=== PATIENT | female | born 1975 | race Caucasian/White ===

== ENCOUNTER 2016-04-06 17:21 | Inpatient (IN) | payer OTHER ==
[~2016-04-06] VITALS: Ht 162.6 cm; Wt 54.3 kg
[2016-04-06 17:23] VITALS: BP 84/60; PULSE 59; RESP 18; O2SAT 99
[2016-04-06] MEDS ORDERED: HYDROmorphone 2 mg/mL Inj ONE (17:59)
[2016-04-06] MEDS ORDERED: Rocuronium 10 mg/mL 5 mL Inj ONE (17:59)
[2016-04-06] MEDS ORDERED: Dexamethasone 4 mg/mL Inj ONE (17:59)
[2016-04-06] MEDS ORDERED: Propofol 10,000 mCg/mL 20 mL Inj ONE (17:59)
[2016-04-06] MEDS ORDERED: Neostigmine 1 mg/mL 5 mL Inj ONE (17:59)
[2016-04-06] MEDS ORDERED: fentaNYL-PF 50 mCg/mL 2 mL Inj ONE (17:59)
[2016-04-06] MEDS ORDERED: Ondansetron 2 mg/mL 2 mL Inj ONE (17:59)
[2016-04-06] MEDS ORDERED: Glycopyrrolate 0.2 mg/mL 5 mL Inj ONE (17:59)
[2016-04-06 18:29] VITALS: BP 109/45; PULSE 77; RESP 20; O2SAT 99
--- NOTE | 2016-04-06 18:30 | ED.REPORT ---
HPI-Extremity Problem Upper Date of Service Apr 06, 2016 ED Provider: Dr. Holt Pt is a 40 year old female presenting to the ED complaining of right arm pain onset while snowboarding today. She denies hitting her head, abd pain, chest pain, or any other symptoms at this time. Nursing Notes Stated Complaint: RIGHT ARM PAIN Chief Complaint: Extremity Trauma Nursing Notes Reviewed: Yes Allergies: Coded Allergies: No Known Allergies (Unverified , 04/06/16) No Active Prescriptions or Reported Meds General Time Seen by MD: 18:30 Chief Complaint Arm injury right Hx Obtained From: Patient Arrived By: Walk-in Onset Occurred: Just prior to arrival Symptom Duration: Since onset Caused by: Accidental Context: Occurred at: Sports injury Location: : Arm right Quality: Painful Severity: Current: Moderate Severity: Maximum: Severe Associated with: Denies: Abdominal pain, Chest pain, Neck pain Recent Healthcare: No recent doctor visit, No recent hospitalization Similar Sx Previous: No Past Medical History Past Medical History denies Past Surgical History denies Smoking History Unknown if Ever Smoker Ambulatory Status Independent Review of Systems Musculoskeletal: Reports: Extremity pain (Right arm), Joint pain (Right shoulder) Neurologic: Denies: Headache Complete sys rev & neg: except as marked. Cardiovascular: Denies: Chest pain GI: Denies: Abdominal pain Physical Exam Initial Vital Signs Vital Signs (First) Date Time Temp Pulse Resp B/P Pulse Ox O2 Delivery O2 Flow Rate FiO2 04/06/16 17:23 36.3 59 18 84/60 99 Room Air Initial VS: Reviewed Head / Eyes: Atraumatic, Normocephalic, PERRL ENT: Mucous membranes moist, Conjunctiva normal, No scleral icterus Neck: Supple, Non-tender, Full range of motion Respiratory: Breath sounds normal, Clear to auscultation, No respiratory distress Lower Extremities: Vascular intact, Neuro intact, No swelling, No tenderness Skin: Warm, Dry, No cyanosis Neurologic: Alert, Oriented, Nonfocal Psychiatric: Mood/affect normal, Behavior normal, Normal thought content General/Constitutional: Awake, Alert Distress / Hydration: Positive: Distress moderate (Due to pain) Upper Extremity / MS: No erythema, No compartment syndrome Right Upper Arm: Positive: Deformity humerus mid, Swelling present... (Mild), Tenderness present... (Severe) Palpable crepitance right upper arm. No palpable radial or ulnar pulse. Warm hand with instant capillary refill. Ulnar neuropathy and wrist drop. Cannot adduct at fingers. Interpretation & Diagnostics Lab Results Interpretation Result Diagram: 04/06/16 1830 04/06/16 1830 Test 04/06/16 18:30 04/06/16 20:14 White Blood Count 17.8th/mm3 (3.8-10.1) Red Blood Count 4.22mil/mm3 (3.90-5.20) Hemoglobin 12.7g/dL (12.0-15.6) Hematocrit 38.4% (35.0-46.0) Mean Corpuscular Volume 91.0fL (81-100) Mean Corpuscular Hemoglobin 30.1pg (27.0-35.0) Mean Corpuscular Hemoglobin Concent 33.1% (32.0-37.0) Red Cell Distribution Width 13.8% (12.3-15.4) Platelet Count 252bil/L (150-400) Neutrophils (%) (Auto) 92.5% (40-74) Lymphocytes (%) (Auto) 4.4% (14-46) Monocytes (%) (Auto) 2.8% (4-12) Eosinophils (%) (Auto) 0% (0-5) Basophils (%) (Auto) 0.1% (0-3) Sodium Level 137mEq/L (134-144) Potassium Level 4.4mEq/L (3.5-5.2) Chloride Level 103mEq/L (97-108) Carbon Dioxide Level 21mmol/L (18-29) Blood Urea Nitrogen 14mg/dL (6-20) Creatinine 0.68mg/dL (0.57-1.00) Estimat Glomerular Filtration Rate 139mL/min (>59) Glucose Level 123mg/dL (60-99) Calcium Level 8.4mg/dL (8.5-10.1) Total Bilirubin 0.6mg/dL (0.0-1.2) Aspartate Amino Transf (AST/SGOT) 23U/L (0-50) Alanine Aminotransferase (ALT/SGPT) 15U/L (0-32) Alkaline Phosphatase 59U/L (25-150) Total Protein 6.8g/dL (6.4-8.4) Albumin 3.9g/dL (3.4-5.0) HCG Beta Subunit < 0.500mIU/mL Hold Urine Received (Received) X-Ray Interpretation Xray Interpretation: XRAY RIGHT HUMERUS: IMPRESSION: Right humerus fracture as above Dictated by: Ravi Jimenez M.D. on 04/06/2016 at 18:53 X-Ray Ordered: Humerus right Interpretation / Wet Read by: Interpret - Radiologist Procedures Splint Application - Fx Mgt Splint Application- Fx Mgt: Time out performed. Time: 18:50 Procedure Performed by: ED physician Precise Anatomic Location: Right upper arm Type of Immobilization: Ortho-glass Definitive Fracture Care: Performed by me Post-Procedure / Complications: Condition improved, Tolerated procedure well , Patient stable Re-Eval/Medical Decision Med Decision/Clinical Course Patient presented with a comminuted right humerus fracture. She has radial and possibly ulnar nerve entrapment/injury. She is unable to extend at the wrist or extend the thumb. She has weakness with abduction and abduction at the second through fifth digits. She is able to fire her thenar eminence. I cannot feel a radial pulse on either arm but I can feel that she has ulnar pulse. Hand held vascular probe Doppler confirmed the presence of radial blood flow bilaterally. She was placed in a splint and sling and she continued to have severe pain and radial nerve deficits as well as ulnar nerve deficit visit. Dr. Polanco consulted. Plan for operative intervention tonight. Re-Evaluation/Progress #1: Time of Eval: 18:38 Patient Status: Condition improved Re-Evaluation/Progress Note: The pt has sensation in her thumb. Re-Evaluation/Progress #2: Time of Eval: 18:42 Patient Status: Condition improved Re-Evaluation/Progress Note: Discussed plan for admission and surgery in the morning. Re-Evaluation/Progress #3: Time of Eval: 18:47 Patient Status: Condition improved Re-Evaluation/Progress Note: Re-splinted the arm and checked sensation, tendon function, and pulses. Radial and ulnar nerves affected. Consultation #1: Referral / Consult Name: Miguel Ángel Polanco MD Consulted With: Orthopedic Call Returned at: 18:40 Note: Admit the pt and she will have surgery in the morning. Consultation #2: Referral / Consult Name: Tej Ramirez MD Consulted With: Hospitalist Call Returned at: 19:00 Spinning Frame Fixer: Will see patient, Agrees with plan, Accepts admit Counseled Regarding: Diagnosis, Lab results, Need for follow-up, When/why to return to ED Discharge & Departure Shift Change Sign-Out Response to Therapy: Improved Impression: Primary Impression: Comminuted right humeral fracture Disposition: ADMITTED TO HOSPITAL Discharge Condition All VS Reviewed: Yes Condition: Improved Referrals: [facility] [place] Attestation Portions of this note were transcribed by Ángela Newsome. I, Dr. Holt personally performed the history, physical exam and medical decision-making; I reviewed and confirmed the accuracy of the information in the transcribed note. Signed by : Love Dc, 04/06/2016 and 2031. copies to: [facility] Jose Holt DO Apr 06, 2016 18:30 ÁNGELA NEWSOME Apr 06, 2016 18:36
[2016-04-06] MEDS: HYDROmorphone 0.5 mg/0.5 mL iSecure Syringe IVPUSH PRN ×7 (18:44→21:19)
[2016-04-06 18:53] LABS: BASOPHILS % (AUTO) 0.1 % (0-3); EOSINOPHILS % (AUTO) 0 % (0-5); MONOCYTES % (AUTO) 2.8 % (4-12); Mean Corpuscular Hemoglobin 30.1 pg (27.0-35.0); NEUTROPHILS % (AUTO) 92.5 % (40-74); Platelet Count 252 bil/L (150-400)
--- NOTE | 2016-04-06 18:55 | DRSVH ---
PROCEDURE: X-RAY RIGHT HUMERUS, MINIMUM TWO VIEWS ([id number]) INDICATIONS: RIGHT HUMURUS INJURY TECHNIQUE: 2 views of the humerus were acquired. COMPARISON: None. FINDINGS: Bones: Comminuted fracture of the right humerus, moderate medial displacement of the butterfly fragme nt Soft tissues: No suspicious soft tissue calcifications. IMPRESSION: Right humerus fracture as above Dictated by: Ravi Jimenez M.D. on 04/06/2016 at 18:53 Approved by: Ravi Jimenez M.D. on 04/06/2016 at 18:53
[2016-04-06] MEDS ORDERED: Lactated Ringer's 1,000 ML IV ONE (19:53)
[2016-04-06 21:12] VITALS: BP 98/63; PULSE 78; RESP 16; O2SAT 93
[2016-04-06] MEDS ORDERED: CeFAZolin 2 Gm/50 mL D5W Duplex Bag IV ONE (21:28)
--- NOTE | 2016-04-06 21:52 | PCM.CONORT ---
Subjective Date of Surgery: Apr 06, 2016 Surgeon Admitting Provider:Miguel Ángel Polanco MD Attending Provider:Miguel Ángel Polanco MD Primary Care Physician:Lady Stovall Other Provider:Margo Schwartz Anesthesia Reason for Consultation: Right arm pain Allergy Allergies: Coded Allergies: No Known Allergies (Unverified , 04/06/16) History Cardiovascular History: Denies:: Congestive Heart Failure Hypertension Respiratory History: Denies:: Tuberculosis Other History/Comment Beatriz Quezada is a 40-year-old right hand dominant patient who presents to the ER for evaluation of their right humerus with ongoing symptoms. The patient states that their pain is a sharp in nature and mild/moderate in severity localized to the lateral aspect of the arm without radiation. This has been progressing over the past several hours after falling on outstretched arm while snowboarding at [facility] earlier today. Moreover, the pain is exacerbated by activities, especially with movement. Rest seems to improve the symptoms. There is decreasing sensation to her hand mostly her thumb as well as inability to move her thumb and weakness to the affected distal upper extremity. The patient denies any fever, chills, nausea, vomiting, chest pain, shortness of breath, or calf tenderness. Previous treatment has included: Sling and splint placed and ER. 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7g/dL (12.0-15.6) Hematocrit 38.4% (35.0-46.0) Mean Corpuscular Volume 91.0fL (81-100) Mean Corpuscular Hemoglobin 30.1pg (27.0-35.0) Mean Corpuscular Hemoglobin Concent 33.1% (32.0-37.0) Red Cell Distribution Width 13.8% (12.3-15.4) Platelet Count 252bil/L (150-400) Neutrophils (%) (Auto) 92.5% (40-74) Lymphocytes (%) (Auto) 4.4% (14-46) Monocytes (%) (Auto) 2.8% (4-12) Eosinophils (%) (Auto) 0% (0-5) Basophils (%) (Auto) 0.1% (0-3) Sodium Level 137mEq/L (134-144) Potassium Level 4.4mEq/L (3.5-5.2) Chloride Level 103mEq/L (97-108) Carbon Dioxide Level 21mmol/L (18-29) Blood Urea Nitrogen 14mg/dL (6-20) Creatinine 0.68mg/dL (0.57-1.00) Estimat Glomerular Filtration Rate 139mL/min (>59) Glucose Level 123mg/dL (60-99) Calcium Level 8.4mg/dL (8.5-10.1) Total Bilirubin 0.6mg/dL (0.0-1.2) Aspartate Amino Transf (AST/SGOT) 23U/L (0-50) Alanine Aminotransferase (ALT/SGPT) 15U/L (0-32) Alkaline Phosphatase 59U/L (25-150) Total Protein 6.8g/dL (6.4-8.4) Albumin 3.9g/dL (3.4-5.0) HCG Beta Subunit < 0.500mIU/mL Result Diagram: 04/06/16182904/06/161829 Review of Systems: Constitutional: Negative, except as otherwise mentioned in the history above. Ophthalmologic: Negative, except as otherwise mentioned in the history above. Cardiovascular: Negative, except as otherwise mentioned in the history above. Respiratory: Negative, except as otherwise mentioned in the history above. Gastrointestinal: Negative, except as otherwise mentioned in the history above. Genitourinary: Negative, except as otherwise mentioned in the history above. Musculoskeletal: Negative, except as otherwise mentioned in the history above. Neurological: Negative, except as otherwise mentioned in the history above. Psychiatric: Negative, except as otherwise mentioned in the history above. Hematologic/Lymphatic: Negative, except as otherwise mentioned in the history above. Allergic/Immunologic: Negative, except as otherwise mentioned in the history above. H&P Surgical Exam Exam Musculoskeletal: CONST: WD,WN, NAD, A+OX3 OCULAR: EOMI, no conjunctivitis/icterus ENT: no deformities, scars or lesions CARDIAC: Pulse is regular. No cyanosis,clubbing,edema RESP: regular,unlabored MSK: normal light touch median, ulnar, lateral antebrachial, axillary nerve distribution, absent radial nerve sensation along thumb and dorsum of the hand and index, unable to make a okay sign and extend the thumb and wrist. Able to wiggle fingers. C5-T1 intact, 2+ u pulse, nonpalpable radial pulse bilaterally but positive Doppler bilaterally Right humerus - scars.++ swelling, - atrophy or asymmetry. no global ligamentous laxity, TTP humerus ROM R/ L Resisted Strength/Pain deferred- + painful arc, - crepitus Signs elbow flexion test:na Tinel's sign: na Mill's test: na Cozen's test: na Varus Stress test: na Valgus Stress test: na Moving Valgus stress test: na Additional Information X-rays the right humerus demonstrate displaced spiral segmental proximal middle third right humerus fracture H&P Preop Plan Impression Right displaced segmental spiral humeral shaft fracture Problems: Risks & Benefits * We have reviewed the risks and benefits as well as the alternatives to surgery. All questions were answered to the patient's satisfaction and a counseling note to that effect. The patient has provided informed consent. * I have counseled the patient regarding the deleterious effects that smoking during the perioperative period can have upon wound healing, infection rates, and the overall rate of complications. Plan Nonweightbearing right upper extremity Oral pain meds as needed Plan for open reduction internal fixation of right humerus with nerve exploration Nothing by mouth since 10 AM this morning Coaptation splint for comfort Sling I reviewed my findings with the patient. The patient remains symptomatic following the initial injury. In light of the ongoing symptoms, our plan is to proceed with surgical intervention. I have explained to the patient the nature of the surgery as well as the perioperative recovery including the risks, benefits and alternatives. A clear explanation was given to the patient regarding the condition present, and the available conservative and surgical options. It was emphasized that the risks and benefits of surgery include but are not limited to infection, wound healing problems, damage to adjacent structures such as nerves, blood vessels and tendons, chcf disability and pain, arthritis, hypersensitivity, deep vein thrombosis, pulmonary embolism, broken hardware, failure of surgery, need for further procedures at time of surgery or later, loss of limb, heart attack, stroke, and . The patient was given an explanation and the patient voiced understanding of what to expect after the procedure or surgery, the limitations in activities of daily living, the likely duration for post operative recovery and the instructions that are to be followed. At the end the patient was invited to seek clarification or ask further questions but there were none. I have advised the patient first that there are no guarantees as to outcome and that their ultimate improvement is largely based on the extent of the pre-existing underlying pathology. The patients questions were answered and they stated understanding of the nature of the surgical procedure and gave written and verbal consent to proceed. The patient voiced understanding of the entire consultation. Please keep the affected extremity elevated when possible. You may use ice and/or heat as needed for comfort. All questions and concerns were addressed. Please feel free to call with any further questions, comments, and/or concerns. Miguel Ángel Polanco MD Apr 06, 2016 21:52
--- NOTE | 2016-04-06 22:08 | PCM.HPANE ---
Patient Data Surgeon Admitting Provider: Attending Provider: Primary Care Physician:Lady Stovall Other Provider: Reason for Visit Right Arm Pain Ht/WT & BMI Height (Feet): 5 Height (Inches): 4 Weight (Kilograms): 54.55 Body Mass Index Allergies Coded Allergies: No Known Allergies (Unverified , 04/06/16) Past Anesthesia History Anesthesia History: Denies:: Abnormal Airway, Anesthesia Reactions, Difficult Intubation, Fam Anesthesia Reaction, Fam Malignant Hypertherm, Malignant Hyperthermia Diabetes History Hx Diabetes?: No MRSA MRSA: No Medications Hypertension Medication: No Home Meds Incl Beta Graham: No History History of ENT Problems?: No HEENT History: Denies:: Abnormal Airway Cataracts Difficult Intubation Dysphagia Glaucoma Hearing Problem Sinus Problem TMJ Hx of Heart Problems?: No Cardiovascular History: Denies:: AICD Abdominal Aortic Aneurism Atrial Fibrillation Cardiac Surgery Chest Pain Congestive Heart Failure Coronary Artery Disease Edema Heart Murmur Hypertension Irregular Heartbeat Pacemaker Peripheral Vascular Rheumatic Fever Thrombophlebitis Valvular Heart Disease Hx of Respiratory Problem?: No Respiratory History: Denies:: Asthma COPD Chest Surgery Cough Dyspnea Emphysema Hemoptysis Oxygen Administration Pneumonia Pulmonary Embolism Tuberculosis Use of C-PAP Machine Use of Inhalers / NEBS Hx Neurologic Problems?: No Hx of GI Problems?: No Hx of Problems?: No HX of Peritoneal Dialysis: No Female Hx: Denies:: Currently Endometriosis Pelvic Inflammatory Problems with Breasts? Hx Musculoskeletal Problems?: Yes Musculoskeletal History: Positive for:: Musculoskeletal Trauma (Right humerus fracture) Hx of Psycho/Social Problems?: No Hx Surgeries?: Yes Other History: Denies:: Cancer Endocrine Disease Hospitalization Thyroid Disease History Blood Transfusions: Denies:: Accept Blood Products? Blood Transfuse Reaction Blood Transfusions Hx Alcohol Use: YesHx Substance Use: No Smoking Status: Unknown if Ever Smoker Have You Smoked inLast 12 mo: No Stop/Bang JOSE ANGEL Risk Assessment: Low Risk, <3 Yes Risk Assessment Category Category 1A: Patient has history of documented sleep apnea, and HAS NOT received any narcotic, sedative or anesthesia administration during this stay. Category 1B: Patient has history of documented sleep apnea, and HAS received any narcotic , sedative or anesthesia administration during this stay Category 2: Patient has SUSPECTED Obstructive Sleep Apnea, and HAS received any narcotic , sedative or anesthesia administration during this stay. Category 3: Patient has SUSPECTED Obstructive Sleep Apnea and HAS NOT received narcotic, sedative or anesthesia administration during this stay. Category 4: Outpatient in Procedural Areas with known sleep apnea or who screen positive for High Risk via the STOP/BANG questionnaire. Exam Exam Vital Signs Vital Signs Date Time Temp Pulse Resp B/P Pulse Ox O2 Delivery O2 Flow Rate FiO2 04/06/16 18:29 77 20 109/45 99 Room Air 04/06/16 17:23 36.3 59 18 84/60 99 Room Air General Appearance: Alert, Oriented X3, Cooperative, No Acute Distress HEENT/AIRWAY: MP 2 Lungs: Clear to Auscultation, Normal Air Movement Heart: Exam Unremarkable, Regular Rate/Rhythm, No Murmurs/Rubs/Gallops Meds/Labs/Diagnostics Labs Test 04/06/16 18:30 White Blood Count 17.8th/mm3 (3.8-10.1) Red Blood Count 4.22mil/mm3 (3.90-5.20) Hemoglobin 12.7g/dL (12.0-15.6) Hematocrit 38.4% (35.0-46.0) Mean Corpuscular Volume 91.0fL (81-100) Mean Corpuscular Hemoglobin 30.1pg (27.0-35.0) Mean Corpuscular Hemoglobin Concent 33.1% (32.0-37.0) Red Cell Distribution Width 13.8% (12.3-15.4) Platelet Count 252bil/L (150-400) Neutrophils (%) (Auto) 92.5% (40-74) Lymphocytes (%) (Auto) 4.4% (14-46) Monocytes (%) (Auto) 2.8% (4-12) Eosinophils (%) (Auto) 0% (0-5) Basophils (%) (Auto) 0.1% (0-3) Sodium Level 137mEq/L (134-144) Potassium Level 4.4mEq/L (3.5-5.2) Chloride Level 103mEq/L (97-108) Carbon Dioxide Level 21mmol/L (18-29) Blood Urea Nitrogen 14mg/dL (6-20) Creatinine 0.68mg/dL (0.57-1.00) Estimat Glomerular Filtration Rate 139mL/min (>59) Glucose Level 123mg/dL (60-99) Calcium Level 8.4mg/dL (8.5-10.1) Total Bilirubin 0.6mg/dL (0.0-1.2) Aspartate Amino Transf (AST/SGOT) 23U/L (0-50) Alanine Aminotransferase (ALT/SGPT) 15U/L (0-32) Alkaline Phosphatase 59U/L (25-150) Total Protein 6.8g/dL (6.4-8.4) Albumin 3.9g/dL (3.4-5.0) HCG Beta Subunit < 0.500mIU/mL Plan Impression Patient chart reviewed, patient interviewed and anesthestic plan with risks, benefits, and alternatives discussed, and informed consent obtained. ASA Physical Status: ASA1 Plus Emergency Anesthetic Plan: GA Bene/Risks/Altern/Consents: Yes HP Complete Prior to Induction: Yes [place] MD Apr 06, 2016 19:54
[2016-04-06] MEDS ORDERED: hydrOXYzine Inj 25 MG/1 mL SDV IM PRN (22:20)
[2016-04-06] MEDS ORDERED: EPHEDrine Sulfate 50 mg/mL Inj IM PRN (22:20)
[2016-04-06] MEDS ORDERED: Ondansetron 2 mg/mL 2 mL Inj IVPUSH PRN (22:20)
[2016-04-06] MEDS ORDERED: Atropine 0.4 mg/mL Inj IVPUSH PRN (22:20)
[2016-04-06] MEDS ORDERED: Phenylephrine 10,000 mCg/mL Inj IVPUSH PRN (22:20)
[2016-04-06] MEDS ORDERED: EPHEDrine Sulfate 50 mg/mL Inj IVPUSH PRN (22:20)
[2016-04-06] MEDS ORDERED: hydrALAZINE 20 mg/mL Inj IVPUSH PRN (22:20)
[2016-04-06] MEDS ORDERED: MetoCLOpramide 5 mg/mL 2 mL Inj IVPUSH PRN (22:20)
[2016-04-06] MEDS ORDERED: Lactated Ringer's 1,000 ML IV SCH (22:20)
[2016-04-06] MEDS ORDERED: Labetalol 5 mg/mL 4 mL Inj IV PRN (22:20)
[2016-04-06] MEDS ORDERED: Lactated Ringer's 500 ML IV PRN (22:20)
[2016-04-06] MEDS ORDERED: HYDROmorphone 1 mg/mL Inj IVPUSH PRN (22:20)
[2016-04-06] MEDS ORDERED: Bacitracin 50,000 unit Inj IRRIGATION ONE (23:20)
[2016-04-07] VITALS (11 sets, daily range): BP systolic 89–121; BP diastolic 48–72; PULSE 10–80; RESP 10–22; O2SAT 96–100
[2016-04-07] MEDS ORDERED: Bupivacaine-MPF 0.5% 30 mL Inj INFILTRATE ONE (00:04)
[2016-04-07] MEDS ORDERED: Polyethylene Glycol (PEG) 17 Gm Powder PO PRN (00:50)
[2016-04-07] MEDS ORDERED: Magnesium Hydroxide 10 mL Oral Concentration PO PRN (00:50)
[2016-04-07] MEDS ORDERED: Sodium Biphos-Phos 133 mL Enema RECTAL PRN (00:50)
[2016-04-07] MEDS ORDERED: Ketorolac 15 mg/mL Inj IVPUSH PRN (00:50)
--- NOTE | 2016-04-07 00:55 | PCM.ORTHOP ---
Orthopedic Operative Report Date of Service: Apr 06, 2016 Pre Operative Diagnosis Right comminuted humeral surgical neck and shaft fracture Post Operative Diagnosis Same Procedure Right humerus open reduction internal fixation Surgeon Surgeon: Miguel Ángel Polanco MD Assistants: Shania Gonzalez Indication for Procedure Right displaced comminuted humeral shaft and surgical neck fracture Findings Right comminuted displaced humeral shaft and surgical neck fracture Details of Procedure Implant: Synthes proximal humerus plate 235mm Indications: Beatriz Quezada is a 40-year-old right-hand dominant female who sustained a humerus shaft fracture after fall today. the patient reports severe recalcitrant pain and radial nerve palsy in the arm. The patient elected for operative treatment. A clear explanation was given to the patient regarding the condition present, and the available conservative and surgical options. It was emphasized that the risks and benefits of surgery include but are not limited to infection, wound healing problems, damage to adjacent structures such as nerves, blood vessels and tendons, usp disability and pain, arthritis, hypersensitivity, deep vein thrombosis, pulmonary embolism, broken hardware, failure of surgery, need for further procedures at time of surgery or later, cast related problems, loss of limb or life. The patient was given an explanation and the patient voiced understanding of what to expect after the procedure or surgery, the limitations in activities of daily living, the likely duration for post operative recovery and the instructions that are to be followed. At the end the patient was invited to seek clarification or ask further questions but there were none. The patient voiced understanding of the entire consultation. Description of Operation: Patient taken to operating room and transferred to operating table in supine position. Time out was performed with both anesthesia and orthopaedics faculty present to confirm details of case to be performed. After time out performed, patient placed under general anesthesia and endotracheal tube secured into place. Once endotracheal tube secured, the patient was then positioned supine with a hand table Patient position was again checked to ensure all bony prominences adequately padded. The right arm was prepped and draped in the usual sterile fashion. Preoperative antibiotics were administered. A standard anterolateral approach was made with care dissection with a deltopectoral approach proximally and between the biceps and brachialis at the mid shaft and between the brachialis and brachioradialis distally. The radial nerve was identified and protected throughout the procedure. Blunt dissection was used to carefully expose the fracture site medially and laterally on the mid-shaft and proximal humerus. Care was taken to not damage nearby neurovascular structures. The fracture appeared to have 2 large segmental butterfly fragment that was spiral in nature and not amenable to compression plating. The anterolateral aspect of humerus was cleared of soft tissue and radial nerve for placement of the plate. A Rongeur was used to clean the fracture site. The fracture was carefully reduced using reduction clamps and FiberWire and alignment verified in both AP and lateral views with the C-arm. The Synthes plate was placed over the anterolateral aspect of the humerus and secured proximally with locking screws proximally and cortical screws distally. Greater than Six cortices were obtained proximally and eight distally with cortical screws inserted in the standard fashion using the drill guide and depth gauge. Fluoroscopy confirmed anatomic reduction of the fracture in orthogonal views. The wound was thoroughly irrigated by bulb irrigation. Hemostasis was obtained with electrocautery. The aforementioned intervals were closed with 0 Vicryl. The subcutaneous space was closed with interrupted 2-0 Vicryl suture. The skin was closed with 3-0 Prolene suture. Hard copy radiographs confirmed adequate reduction and placement of hardware. The patient was extubated without difficulty and transferred to the PACU in stable condition. I was present for the entire procedure. 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 Without the qualified pest controller assistant being present, it would have extended the operative procedure and made the procedure technically more difficult to perform. The plan is to continue nonweightbearing for at least 6 weeks. He will be discharged on [place] and [place]. Please continue range of motion exercises to the elbow wrist and hand 3 times daily while in splint. Please keep dressing on at all times and do not get the dressing wet. If just become soaked, you may change the gauze but do not remove the under dressing. You will follow-up with me in 2 weeks with x-rays for dressing change and at 6 weeks with my PA. Grafts, Implants: Implants-See Implant Record Complications There were no periprocedural complications identified. Condition Stable Anesthetic Administered: GA Catheters: None Output, Estimated Blood Loss: 100 Blood Admin during surgery: No Surgical Cast or Splint: Long Arm Splint Surgical Specimen Removed: No Specimen sent to Pathology: No copies to: Miguel Ángel Polanco MD, Christopher L MD Apr 07, 2016 00:55
--- NOTE | 2016-04-07 01:04 | PCM.ANEP1 ---
Post Anesthesia Phase 1 PACU Phase 1 Assessment Date of Service: Apr 06, 2016 Vital Signs Vital Signs Date Time Temp Pulse Resp B/P Pulse Ox O2 Delivery O2 Flow Rate FiO2 04/07/16 01:00 36.9 70 12 115/72 100 Nasal Cannula 2 04/06/16 21:12 36.4 78 16 98/63 93 Room Air 04/06/16 21:02 36.8 77 12 98/63 94 Room Air 04/06/16 18:29 77 20 109/45 99 Room Air 04/06/16 17:23 36.3 59 18 84/60 99 Room Air Anesthetic Administered: GA Level of Alertness: Awake, talking HOLDEN's with Equal Strength: Yes Pain: No Nausea or Vomiting: No Oxygen Delivery: Nasal Cannula Lungs: Clear to Auscultation, Normal Air Movement Mt Alexander MD Apr 07, 2016 01:04
[2016-04-07] MEDS: fentaNYL-PF 50 mCg/mL 2 mL Inj IVPUSH PRN ×3 (01:05→01:28)
--- NOTE | 2016-04-07 01:06 | PCM.ANEP2 ---
Post Anesthesia Evaluation ASA/CMS Post Anesthesia VS in Patient's Normal Range?: Yes Resp Stable; Airway Patent?: Yes CV Function & Hydration Stable: Yes Mental Status Recovered?: Yes Pain control Satisfactory?: Yes N/V Control Satisfactory?: Yes Mt Alexander MD Apr 07, 2016 01:06
[2016-04-07] MEDS ORDERED: Bacitracin 50,000 unit Inj IRRIGATION ONE (01:10)
[2016-04-07] MEDS: Lactated Ringer's 1,000 ML IV SCH ×2 (01:55→13:18)
--- NOTE | 2016-04-07 02:47 | NUR ---
ADMIT; 40 YR female to room 1012 via gurney from e.r. at approx. 0145. Fell while skate boarding and fractured her right arm. Sling on, arm supported by pillow.
--- NOTE | 2016-04-07 03:50 | NUR ---
ACTIVITY; up to the bathroom to void with standby assist with iv pole. Toradol given for incisional pain. Ortho checks wnl.
[2016-04-07] MEDS: HYDROcodone-APAP 5-325 mg Tablet PO PRN ×2 (05:21→09:47)
--- NOTE | 2016-04-07 07:20 | NUR ---
PAIN; pt stated vicodan not effective for incisional pain. SHEILA Jarvis notified and oxycodone given- next shift to evaluate effectiveness.
[2016-04-07] MEDS ORDERED: Senna-Docusate 8.6-50 mg Tablet PO SCH (08:30)
[2016-04-07] MEDS: CeFAZolin Inj 2 GM in IV Premix 1 EACH IV SCH ×2 (08:39→16:30)
--- NOTE | 2016-04-07 08:48 | NUR ---
Pain, spasms Pt c/o 10/10 pain in right upper arm. Pt has already received Toradol, hydrocodone, and oxycodone. She states these have not helped much. Now she says she is feeling more muscle spasms. Paged Killina Headley and requested order for muscle relaxer. He gave me a verbal order for Vistaril 25 mg PO. Care continues.
[2016-04-07] MEDS ORDERED: hydrOXYzine Pamoate 25 mg Capsule PO PRN (09:35)
[2016-04-07] MEDS: oxyCODONE-Acetamin 5-325 mg Tablet PO PRN ×2 (13:29→17:52)
--- NOTE | 2016-04-07 15:06 | PCM.PNORTH ---
Subjective Date of Service: Apr 07, 2016 Visit Information: Reason for Visit Right Humerous Fracture Surgery/Surgery Date Post-Op Day # Date of Admission: Apr 06, 2016 at 20:36 Hospital Day # Subjective s/p day 1 R humerus ORIF with long plate fixation. Pt states that she is having spasms. Her pain has been 10 out of 10 through the night. It is generally achy through the whole arm, not the shoulder or anywhere specifically. Her pinky and ring finger feel numb. Her hand is achy and she can't move it much. Wants to go home but is in too much pain today. Postop General: No Shortness of Breath, No Chest Pain Objective Exam Objective Patient is A&O x 3. Answering questions. Sitting up in bed with sling in place , in acute distress, does not like to move at all due to discomfort. Dressing is clean, dry, and intact, splint in good position, immobilizing the elbow. Pt able to very weakly wiggle fingers and squeeze in a fist 3/5. Good capillary refill, radial pulses intact. Sensation intact, but some hypoesthesia in the pinky and ring finger. Upon removing the dressing incision is intact. Minimal to no bleeding, incision intact. 1+ edema around R hand region and fingers. After debbie wrap and splint removal patient able to move fingers dramatically better, numbness subjectively improved, pain reduced from 10/10 to 5/10, patient relaxing and falling to sleep. Feels much better after the dressing change. Dressing is now adaptic with gauze 4x4s, abdominal pads with tape and debbie wrap just over humerus region. Re-checked patient 30 minutes later and says she is very comfortable and pain is no more than 5/10, just took a pain pill 15 minutes prior and would like to go home if possible. Vital Signs and I/O Vital Sign - Last Date Time Temp Pulse Resp B/P Pulse Ox O2 Delivery O2 Flow Rate FiO2 04/07/16 10:32 37.3 68 22 101/65 97 Room Air 04/07/16 02:02 2.00 Intake and Output 04/06/16 04/06/16 04/07/16 Cumulative From/Thru 15:00 23:00 07:00 04/06/16 01:26 - 04/07/16 05:48 Intake Total 800 ml 620 ml 1520 ml Output Total 500 ml 500 ml Balance 800 ml 120 ml 1020 ml Intake Oral 300 ml 300 ml IV Total 800 ml 320 ml 1220 ml Output Urine Total 400 ml 400 ml Estimated Blood Loss 100 ml 100 ml # Voids 1 1 # Bowel Movements 0 0 Lab & Micro Results Laboratory Tests Test 04/06/16 18:30 04/06/16 20:14 White Blood Count 17.8th/mm3 (3.8-10.1) Red Blood Count 4.22mil/mm3 (3.90-5.20) Hemoglobin 12.7g/dL (12.0-15.6) Hematocrit 38.4% (35.0-46.0) Mean Corpuscular Volume 91.0fL (81-100) Mean Corpuscular Hemoglobin 30.1pg (27.0-35.0) Mean Corpuscular Hemoglobin Concent 33.1% (32.0-37.0) Red Cell Distribution Width 13.8% (12.3-15.4) Platelet Count 252bil/L (150-400) Neutrophils (%) (Auto) 92.5% (40-74) Lymphocytes (%) (Auto) 4.4% (14-46) Monocytes (%) (Auto) 2.8% (4-12) Eosinophils (%) (Auto) 0% (0-5) Basophils (%) (Auto) 0.1% (0-3) Sodium Level 137mEq/L (134-144) Potassium Level 4.4mEq/L (3.5-5.2) Chloride Level 103mEq/L (97-108) Carbon Dioxide Level 21mmol/L (18-29) Blood Urea Nitrogen 14mg/dL (6-20) Creatinine 0.68mg/dL (0.57-1.00) Estimat Glomerular Filtration Rate 139mL/min (>59) Glucose Level 123mg/dL (60-99) Calcium Level 8.4mg/dL (8.5-10.1) Total Bilirubin 0.6mg/dL (0.0-1.2) Aspartate Amino Transf (AST/SGOT) 23U/L (0-50) Alanine Aminotransferase (ALT/SGPT) 15U/L (0-32) Alkaline Phosphatase 59U/L (25-150) Total Protein 6.8g/dL (6.4-8.4) Albumin 3.9g/dL (3.4-5.0) HCG Beta Subunit < 0.500mIU/mL Hold Urine Received (Received) Result Diagram: 04/06/16182904/06/161829 Catheters: None Assessment & Plan Impression s/p day 1 R humerus ORIF with long plate fixation. Pt doing well, ready to go home. Pain significantly improved. Problems: Plan Patient will remain non-weight bearing for right arm for 6 weeks. No lifting at all. Pt will remain in sling at all times except 3 times a day for elbow and wrist range of motion. Patient advised to keep dressing clean, dry, and intact for 3 more days, then she may remove to shower. Do not soak or rub incision. Cover as needed after day 4. patient will be given some dressings to go home with if needed. Patient given Vistaril to use if needed every 6 hours. Also given Percocet 5/ 325 to take 1-2 every 4 hours if needed for pain. Follow up at [facility] for x-rays and post op visit in 2 weeks. (2 weeks from surgery date with Killian Headley PA-C or Dr Polanco.) Discharge to home. Killian Headley PA-C Apr 07, 2016 15:06
--- NOTE | 2016-04-07 15:09 | PCM.DIORTH ---
Ortho Discharge Instruction Date of Service: Apr 07, 2016 Dates of Hospitalization Date of Hospital Admission Apr 06, 2016 at 20:36 Providers Admitting Physician: Miguel Ángel Polanco MD Primary Care Physician: Lady Stovall Attending Physician: Miguel Ángel Polanco MD Diet Discharge Diet: No restrictions Activity Discharge Activity-General: Try not to overdue Right Upper Extremity: Non-weight bearing Additional Instructions Discharge Instructions Patient will remain non-weight bearing for right arm for 6 weeks. No lifting at all. Pt will remain in sling at all times except 3 times a day for elbow and wrist range of motion. Patient advised to keep dressing clean, dry, and intact for 3 more days, then she may remove to shower. Do not soak or rub incision. Cover as needed after day 4. patient will be given some dressings to go home with if needed. Patient given Vistaril to use if needed every 6 hours. Also given Percocet 5/ 325 to take 1-2 every 4 hours if needed for pain. Follow up at [facility] for x-rays and post op visit in 2 weeks. (2 weeks from surgery date with Killian Headley PA-C or Dr Polanco.) Discharge to home. Follow Up Plan Follow Up Plan 2 weeks Killian Headley PA-C Apr 07, 2016 15:09
--- NOTE | 2016-04-07 18:14 | NUR ---
discharge Pt discharged to home via private vehicle with spouse at 1800 hrs. Pain at a tolerable level and controlled with 1 Percocet tab. PIV removed intact. VSS. All personal possessions sent with pt. Discharge and follow up instructions given to pt, and she expressed understanding.
--- NOTE | 2016-04-19 10:27 | PCM.DC.ORT ---
Discharge Summary Date of Service: Apr 19, 2016 Date of Hospital Admission: Apr 06, 2016 at 20:36 Date of Surgery: Apr 06, 2016 Date of Discharge: Apr 07, 2016 Reason for Hospitalization: Right comminuted humerus fracture Procedures Performed: Right humerus ORIF. Hospital Course: Patient presented to [facility] surgical suite for the procedure of coronary humerus ORIF by Dr. Miguel Ángel Polanco on 04/06/2016. Patient was prepped for surgery and the procedure was performed successfully, patient was discharged to PACU under stable condition, tolerated the procedure well. Once stabilized in PACU and pain well controlled, patient was admitted to the hospital floor for observation, pain control, and progression with physical therapy. The first 1-2 days the patient was able to resume a regular diet, void on their own, not having any problems with nausea or vomiting. The patient did not have any adverse falls, reactions, or events were all in the hospital. The patient began working with physical therapy on day one then progressed quite well with reasonable pain control. On day #1 the patient was able to ambulate safely on their own, and pain was controlled sufficiently to be discharged to home. The patient did have a lot of severe pain and problems through the night. Upon removing the splint and Armani wrap, patient had significant relief in pain symptoms and her pain level went from a 10 down to a 4 or 5 and was doing much better and wanted to go home. The patient was discharged to home under stable condition with plan to follow- up with patient at 2 weeks for a postoperative appointment. Discharge Instructions: Patient will remain non-weight bearing for right arm for 6 weeks. No lifting at all. Pt will remain in sling at all times except 3 times a day for elbow and wrist range of motion. Patient advised to keep dressing clean, dry, and intact for 3 more days, then she may remove to shower. Do not soak or rub incision. Cover as needed after day 4. patient will be given some dressings to go home with if needed. Patient given Vistaril to use if needed every 6 hours. Also given Percocet 5/ 325 to take 1-2 every 4 hours if needed for pain. Follow up at [facility] for x-rays and post op visit in 2 weeks. (2 weeks from surgery date with Killian Headley PA-C or Dr Polanco.) No Active Prescriptions or Reported Meds Killian Headley PA-C Apr 19, 2016 10:24
== END 2016-04-07 18:00 | disposition home or self-care (01) | DRG 494 ==
LOC: SED 17:21 → OBSVTOIN 20:36 → OSC 20:36
PROVIDERS: ADMIT Orthopaedic Surgery; ATTEND Orthopaedic Surgery
PROC: 0PSC04Z Reposition Right Humeral Head with Internal Fixation Device, Open Approach (ICD-10-PCS; 2016-04-06)
PROC: 0PSF04Z Reposition Right Humeral Shaft with Internal Fixation Device, Open Approach (ICD-10-PCS; principal; 2016-04-06 21:30)
DX: S42.341A Displaced spiral fracture of shaft of humerus, right arm, initial encounter for closed fracture (principal); S42.211A Unspecified displaced fracture of surgical neck of right humerus, initial encounter for closed fracture; V00.311A Fall from snowboard, initial encounter; Y93.23 Activity, snow (alpine) (downhill) skiing, snowboarding, sledding, tobogganing and snow tubing; Y99.8 Other external cause status; Y92.828 Other wilderness area as the place of occurrence of the external cause

== ENCOUNTER 2016-11-25 20:04 | Emergency (ER) | payer OTHER ==
[~2016-11-25] VITALS: Ht 162.6 cm; Wt 54.0 kg
[2016-11-25 20:07] VITALS: BP 126/85; PULSE 75; RESP 20; O2SAT 100
--- NOTE | 2016-11-25 21:08 | ED.REPORT ---
HPI-Bite: Human/Animal Date of Service Nov 25, 2016 ED Provider: Jose Holt DO Pt is a 41 y/o female who presents to the ED c/o a dog bite to her right leg onset this evening. She states she was walking her dog, when another strange dog came over and attacked her dog and bit her. She denies active bleeding, fever, chills, dizziness, LOC, headache, or any other symptoms. Pt spoke with police about the incident. Nursing Notes Stated Complaint: DOG BITES Chief Complaint: Post Exposure Body Fluids Nursing Notes Reviewed: Yes Allergies: Coded Allergies: No Known Allergies (Unverified , 04/06/16) No Active Prescriptions or Reported Meds General Time Seen by MD: 21:08 Chief Complaint Dog bite Hx Obtained From: Patient Arrived By: Walk-in Onset Occurred: 1 - 4 hours ago Location: : Thigh right Quality: Painful Severity: Current: Mild Severity: Maximum: Moderate Context: Immunizations Immunizations: Tetanus > 10 yrs Recent Healthcare: No recent hospitalization, Recent doctor visit Similar Sx Previous: No Past Medical History Past Medical History denies Past Surgical History R humerus repair Smoking History Unknown if Ever Smoker Social History Alcohol Use: "Social" Ambulatory Status Independent Review of Systems Dog bite to R leg No active bleeding Constitutional: Denies: Chills, Fever Complete sys rev & neg: except as marked. Neurologic: Denies: Change LOC, Dizziness, Headache Physical Exam Vital Signs Vital Signs (First) Date Time Temp Pulse Resp B/P Pulse Ox O2 Delivery O2 Flow Rate FiO2 11/25/16 20:07 36.4 75 20 126/85 100 Room Air Initial VS: Reviewed Head / Eyes: Atraumatic, Normocephalic Neck: Supple, Full range of motion Abdomen / GI: Soft, Non-tender Neurologic: Alert, Oriented, Nonfocal Psychiatric: Mood/affect normal, Behavior normal, Normal thought content General/Constitutional: Awake, Alert Skin: Warm, Dry Crushing bite with ecchymosis 3 superficial skin tears with ecchymosis Respiratory / Chest: Atraumatic, Breath sounds NL, Breath sounds = bilat, No respiratory distress Cardiovascular: Heart rate NL, Regular rhythm, Heart sounds NL Interpretation & Diagnostics X-Ray Interpretation Xray Interpretation: Tibia/Fibula X-Ray: No fracture or foreign body present. Interpretation / Wet Read by: Wet read ED physician Re-Eval/Medical Decision Med Decision/Clinical Course Crush injury with breaks in the skin. No signs of compartment syndrome, fracture or foreign body. Please report has been filed. We will prophylax with Augmentin. Tetanus is updated. Wound is cleaned and dressed. Short course of [place] prescribed for pain with routine opiate and dog bite warnings. Old records Re-Evaluation/Progress : Time of Eval: 22:08 Re-Evaluation/Progress Note: Patient rechecked. Discussed plan for discharge. Patient understands and agrees with plan. F/U instructions and RTER warnings given. All questions addressed at this time. Counseled Regarding: Diagnosis, Lab results, Need for follow-up, When/why to return to ED Discharge & Departure Shift Change Sign-Out Response to Therapy: Improved Impression: Primary Impression: Dog bite of extremity Disposition: Home Discharge Condition All VS Reviewed: Yes Condition: Stable Patient Instructions: Animal Bite (ED) Additional Instructions: Keep the wound clean, dry and covered with antibacterial ointment. Take Augmentin twice daily for 5 days to prevent infection. Take [id number] Motrin as directed for moderate pain. You will want to [place] every 6 hours needed for severe pain. Watch for signs of infection. Return if any increasing redness, swelling or tight sensation. Return if any significant pain. Set up a follow-up with her primary care physician and follow up with animal control regarding quarantine of the dog that bit you. Referrals: Lady Stovall (PCP) Scribe Attestation Portions of this note were transcribed by Christiane Toro. I, Dr. Holt, personally performed the history, physical exam and medical decision-making; I reviewed and confirmed the accuracy of the information in the transcribed note. copies to: Lady Stovall Todd P DO Nov 25, 2016 21:08 Christiane Toro Nov 25, 2016 21:16
[2016-11-25] MEDS ORDERED: HYDROcodone-APAP 5-325 mg Tablet PO ONE (21:35)
[2016-11-25] MEDS ORDERED: TdaP Vaccine 0.5 mL Inj IM ONE (21:35)
[2016-11-25] MEDS ORDERED: Amoxicillin-Clav 875-125 mg Tablet PO ONE (21:35)
--- NOTE | 2016-11-25 22:17 | DRSVH ---
PROCEDURE: X-RAY RIGHT TIBIA/FIBULA, TWO VIEWS ([id number]) INDICATIONS: dog bite right proximal calf TECHNIQUE: 2 views of the tibia and fibula were acquired. COMPARISON: None. FINDINGS: Bones: No fractures or dislocations. No suspicious bony lesions. Soft tissues: No suspicious soft tissue calcifications or masses. IMPRESSION: No acute bony abnormalities. No unexpected radiopaque foreign bodies. Dictated by: Diane Messer M.D. on 11/25/2016 at 22:15 Approved by: Diane Messer M.D. on 11/25/2016 at 22:15
[2016-11-25 22:52] VITALS: BP 111/75; PULSE 63; O2SAT 100
[2016-11-25 23:03] VITALS: BP 111/75; PULSE 63; RESP 20; O2SAT 100
== END 2016-11-25 23:04 | disposition home or self-care (01) ==
LOC: SED 20:04
DX: S81.851A Open bite, right lower leg, initial encounter (principal); W54.0XXA Bitten by dog, initial encounter; Y93.K1 Activity, walking an animal; Y92.89 Other specified places as the place of occurrence of the external cause; Y99.8 Other external cause status; Z98.890 Other specified postprocedural states; Z23 Encounter for immunization